=== PATIENT | female | born 1990 | race Hispanic/Latino ===

== ENCOUNTER 2025-07-10 11:54 | Emergency (ER) | payer OTHER ==
[~2025-07-10] VITALS: Ht 157.5 cm; Wt 95.3 kg
[2025-07-10 12:10] VITALS: TEMP 98.1
[2025-07-10] MEDS: SODIUM CHLORIDE 0.9% 1000ML 1,000 ML IV STA (13:54)
[2025-07-10] MEDS: ONDANSETRON HCL INJ 2MG/ML 2ML 2 MG/ML VIAL IV PRN (13:55)
[2025-07-10 14:10] VITALS: PULSE 71; RESP 16
[2025-07-10 14:10] LABS: BASOPHILS % 0.3 % (0.0-1.0); EOSINOPHILS % 0.8 % (0.0-6.0); LYMPHOCYTES % 19.8 % (18.0-39.1); MONOCYTES % 6.6 % (4.4-11.3); NEUTROPHILS % 72.2 % (38.7-80.0); RED CELL DISTRIBUTION WIDTH 12.5 % (11.7-14.4)
[2025-07-10 14:43] LABS: EST GLOMERULAR FILTRATION RATE 116.0 ML/MIN (>=60)
[2025-07-10] MEDS ORDERED: ONDANSETRON ODT4 MG PO (15:30)
[2025-07-10 15:34] VITALS: BP 110/96; PULSE 87; RESP 16; TEMP 98.2; O2SAT 100
== END 2025-07-10 15:40 | disposition home or self-care (01) ==
LOC: ER 11:59
DX: O26.891 Other specified pregnancy related conditions, first trimester (principal); O21.0 Mild hyperemesis gravidarum
CPT/HCPCS: 36415; 80053; 83690; 84702; 85025; 99283; J2405; J2470; J7030